=== PATIENT | female | born 1995 | race Caucasian/White ===

== ENCOUNTER 2016-08-01 16:29 | Emergency (ER) | payer OTHER ==
[2016-08-01 17:38] LABS: HEMOGLOBIN 10.6 gm/dl (12.3-15.3); RED BLOOD COUNT 3.98 M/UL (4.00-5.10); WHITE BLOOD COUNT 7.8 K/UL (4.5-11.0)
[2016-08-01 17:58] LABS: BUN/CREATININE RATIO 13 (0-10)
== END 2016-08-01 22:23 | disposition left against medical advice (07) ==
LOC: ER1 16:29
PROVIDERS: Emergency Medicine
DX: N83.202 Unspecified ovarian cyst, left side (principal); K52.9 Noninfective gastroenteritis and colitis, unspecified; Z90.49 Acquired absence of other specified parts of digestive tract
CPT/HCPCS: 36415; 76830; 80053; 81001; 83690; 84703; 85025; 87086; 87210; 96361; 96374; 96375; 96376; 99284; J2270; J2405; J7050; Q9962